=== PATIENT | male | born 1945 | race Caucasian/White ===

== ENCOUNTER → 2019-03-10 | Outpatient (CLI) | payer MEDICARE ==
[~2019-03-10] MED LIST: ALOE VERA JUICE PO; APPLE CIDER VINEGAR; AXIRON30 MG/1.5 PO; CALCIUM PO; CHIA SEEDS PO; COQ-10100 MG PO; D3; FISH OIL PO; GINKGO BILOBA120 MG PO; GLUCOSAMINE CH1 EAC1 PO; HONEY PO; JUICE PLUS; LUTEIN PO; LUTEIN20 MG; MAGNESIUM; MILK THISTLE300 MG PO; POMEGRANATE PO; RAPAFLO8 MG PO; SELENIUM200 MC1 PO; TUMERIC PO; VITAMIN D3 PO; [UNRECOGNIZED DRUG - OTHER]; [UNRECOGNIZED DRUG - OTHER] PO; [UNRECOGNIZED DRUG - OTHER] PO; [UNRECOGNIZED DRUG - OTHER] PO; [UNRECOGNIZED DRUG - OTHER] PO; [UNRECOGNIZED DRUG - OTHER] PO; [UNRECOGNIZED DRUG - OTHER] PO; [UNRECOGNIZED DRUG - OTHER] PO; [UNRECOGNIZED DRUG - OTHER] PO; [UNRECOGNIZED DRUG - OTHER] PO
--- NOTE | 2019-03-10 18:06 | Diagnostic Imaging Report ---
Modified Barium Swallow History: Dysphagia Comparison: None Fluoroscopy Time: 1.03 min. Reference Air Kerma (Ka, r): 1.62 mGy. Technique: Modified barium swallow was performed in conjunction with speech pathology. Please see separate report for further details. The patient was fed various consistencies of barium under real time fluoroscopic observation. No episodes of aspiration or significant airway penetration are identified on provided images. Impression: Modified barium swallow as described above. Signed by: Dr. Willi Kirkland MD on 03/10/2019 6:02 PM
== END ==
LOC: DX 10:49
PROVIDERS: ATTEND Internal Medicine Gastroenterology
DX: K22.70 Barrett's esophagus without dysplasia (principal)
CPT/HCPCS: 74230

== ENCOUNTER → 2020-11-24 | Outpatient (CLI) | payer MEDICARE | LOC: US 13:41 | PROVIDERS: ATTEND Urology | DX: N50.0 Atrophy of testis (principal) | CPT/HCPCS: 76870; 93976 ==